=== PATIENT | male | born 1960 ===

== ENCOUNTER 2020-09-03 11:21 | Outpatient (CLI) | payer SELFPAY ==
[2020-09-03 12:40] VITALS: BMI 27.2
[2020-09-03] MEDS: amlodipine 5 mg Tablet PO (13:06)
--- NOTE | 2020-09-03 14:18 | PC.NURSE ---
INITIAL BP 178/116, CALLED [facility] WITH RESULT. 5MG PO AMLODIPINE GIVEN. 30 MINS LATER BP TAKEN AGAIN 195/109. CALLED [facility] AGAIN WITH RESULTS AND RECEIVED ORDER TO CANCEL AND THE OFFICE TO CALL PT REGARDING MEDS. PT GIVEN ORDERS TO TAKE METOPROLOL WHEN HE GOT HOME. STATED UNDERSTANDING.
== END 2020-09-03 11:22 | disposition home or self-care (01) ==
PROVIDERS: PCP Family Medicine; Visit Provider Internal Medicine Cardiovascular Disease
DX: I25.10 Atherosclerotic heart disease of native coronary artery without angina pectoris (principal)

== ENCOUNTER 2020-10-08 10:54 | Outpatient (CLI) | payer SELFPAY ==
[2020-10-08 11:03] VITALS: BMI 28.7
--- NOTE | 2020-10-08 11:03 | ECG_ITS ---
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 Interpretive Statements NAME OF STUDY: TREADMILL STRESS TEST INDICATION: DOT physcial Baseline blood pressure of 123/82 mm Hg, heart rate of 113 beats per minute and oxygen saturation of 97%. EKG showed sinus tachycardia, possible old inferior wall, poor anterior R wave progression with normal ST-Ts. ??? The patient exercised for 5 minutes and 1 second on a [standard Colin protocol]. Patient attained a maximum heart rate of 142 beats per minute( 88% of the maximum predicted heart rate) with a blood pressure at the peak exercise of 258/102 mm Hg and oxygen saturation of 97%. The EKG at the peak exercise revealed sinus tachycardia with 1/[address] depression in V5 and V6 with biphasic/ inverted T waves. Patient did not have any chest pain or any significant arrhythmis with the exercise. The study was terminated due to exertional shortness of breath and fatigue. During the recovery phase, there were no new changes. ??? Blood pressure at the end of the recovery phase was 130/83 mm Hg with a heart rate of 110 beats per minute and oxygen saturation of 97%. ??? CONCLUSION: 1. Normal EKG response to treadmill exercise. 2. No exercise-induced chest pain or cardiac arrhythmia. 3. Fair exercise tolerance, attained a maximum of 7 METs. Maximum VO2 of 24.5 ml/kg/min. 4. Baseline normal blood pressure with hypertensive response to exercise. Electronically Signed On 10-11-2020 20:55:45 [employer] by Jeannie Ramos M.D. [id number]
[2020-10-08 11:28] VITALS: BP 130/83; PULSE 113
== END 2020-10-08 10:55 | disposition home or self-care (01) ==
LOC: CDL 10:55
PROVIDERS: PCP Family Medicine; Visit Provider Internal Medicine Cardiovascular Disease
DX: I25.10 Atherosclerotic heart disease of native coronary artery without angina pectoris (principal)
CPT/HCPCS: 93017

== ENCOUNTER → 2021-07-31 09:30 | Outpatient (BNVA) | payer SELFPAY | PROVIDERS: PCP Family Medicine; Visit Provider Nurse Practitioner Family | DX: I25.10 Atherosclerotic heart disease of native coronary artery without angina pectoris (principal); I10 Essential (primary) hypertension; E78.5 Hyperlipidemia, unspecified; R73.9 Hyperglycemia, unspecified; F17.210 Nicotine dependence, cigarettes, uncomplicated | CPT/HCPCS: 80053; 80061; 82607; 83036; 84443; 85025 ==